=== PATIENT | male | born 1930 | race Caucasian/White ===

== ENCOUNTER 2019-04-02 06:52 | Outpatient (CLI) | payer MEDICARE, BC ==
--- NOTE | 2019-04-02 09:47 | ULT ---
ABDOMINAL ULTRASOUND COMPLETE: Date: 04/02/19 HISTORY: Abnormal weight loss, anemia. COMPARISON: Chest CT dated 12/19/12. FINDINGS: Somewhat atherosclerotic ectatic changes of the aorta, evidence for atherosclerotic aortic vascular d isease. No focal liver lesion demonstrated. Multiple bilateral renal cysts, up to 8.2 cm on the right side, and 10.1 cm on the left side. No evidence of gallstones, wall thickening, edema, or pericholec ystic fluid. No renal hydronephrosis. Visualized IVC, pancreas, and spleen are unremarkable. No abnor mal fluid collection. IMPRESSION: Multiple bilateral renal cysts. No evidence for other significant acute process. POS: [facility]
== END 2019-04-02 06:53 | disposition home or self-care (01) ==
LOC: ULT 06:52
PROVIDERS: ATTEND Internal Medicine
DX: D64.9 Anemia, unspecified (principal); R63.4 Abnormal weight loss; N28.1 Cyst of kidney, acquired
CPT/HCPCS: 76700